=== PATIENT | female | born 1945 | race Caucasian/White ===

== ENCOUNTER 2018-08-30 14:18 | Emergency (ER) | payer MEDICARE ==
[2018-08-30] MEDS ORDERED: SODIUM CHLORIDE 0.9% 500 ML IV STA (14:37)
[2018-08-30 14:39] VITALS: TEMP 97.5
--- NOTE | 2018-08-30 14:41 | ED ---
General Adult HPI - General Stated complaint: lightheaded/dizzy/blurred vision Time Seen by Provider: 08/30/18 14:20 Source: RN notes reviewed - History of Present Illness Initial comments: This is a 72-year-old female presents emergency Department complaining that one week ago she fell over and is not sure if she passed out. Patient states ever since then she has been off balance and feeling as though she might pass out again. Patient states when he moves his head symptoms are worse. Patient states the room feels like it's moving even though she's sure it's not. Patient states she also was nauseated but did not vomit states she has to be helped to the bathroom and off the couch for the first 2 days and ever since then she still off balance. Patient denies any headache patient denies any numbness or focal weakness. Patient denies any chest pain palpitations difficulty breathing or shortness of breath. Patient states when she was younger she did have a brain aneurysm but she states it went away. Patient denies any abdominal pain patient denies nausea vomiting or diarrhea. Patient denies any recent fever chills or cough. Patient denies any slurred speech patient does state however she has some visual disturbance she believes her vision in both eyes is blurry. - Related Data Previous Rx's Medication Instructions Recorded Meclizine [Antivert] 25 mg PO TID #20 tab 08/30/18 Allergies Allergy/AdvReac Type Severity Reaction Status Date / Time No Known Allergies Allergy Verified 08/30/18 15:43 Review of Systems ROS Statement: Those systems with pertinent positive or pertinent negative responses have been documented in the HPI. ROS Other: All systems not noted in ROS Statement are negative. General Exam - General Exam Comments Initial Comments: GENERAL: Patient is well-developed and well-nourished. Patient is nontoxic and well- hydrated and is in mild distress. ENT: Neck is soft and supple. No significant lymphadenopathy is noted. Oropharynx is clear. Moist mucous membranes. Neck has full range of motion without eliciting any pain. EYES: The sclera were anicteric and conjunctiva were pink and moist. Extraocular movements were intact and pupils were equal round and reactive to light. Eyelids were unremarkable. PULMONARY: Unlabored respirations. Good breath sounds bilaterally. No audible rales rhonchi or wheezing was noted. CARDIOVASCULAR: There is a regular rate and rhythm without any murmurs gallops or rubs. ABDOMEN: Soft and nontender with normal bowel sounds. No palpable organomegaly was noted. There is no palpable pulsatile mass. SKIN: Skin is clear with no lesions or rashes and otherwise unremarkable. NEUROLOGIC: Patient is alert and oriented x3. Cranial nerves II through XII are grossly intact. Motor and sensory are also intact. Normal speech, volume and content. Symmetrical smile. MUSCULOSKELETAL: Normal extremities with adequate strength and full range of motion. LYMPHATICS: No significant lymphadenopathy is noted PSYCHIATRIC: Normal psychiatric evaluation. Course Vital Signs 08/30/18 08/30/18 08/30/18 14:29 14:42 16:14 Temperature 97.5 F L Pulse Rate 83 66 Pulse Rate [ 73 Right Sitting Pulse Oximetery ] Pulse Rate [ 92 Right Standing Pulse Oximetery ] Pulse Rate [ 80 Right Supine Pulse Oximetery ] Respiratory 18 16 Rate Blood Pressure 165/78 145/70 Blood Pressure 161/67 [Right Arm Sitting] Blood Pressure 151/67 [Right Arm Standing] Blood Pressure 170/67 [Right Arm Supine] O2 Sat by Pulse 99 100 Oximetry Medical Decision Making - Medical Decision Making EKG shows normal sinus rhythm at 67 bpm [place] interval is 1:30 QRS is 66 QT interval 396 QTC is 418. Patient's EKG shows no ST segment elevation or depression or T wave abnormalities are noted Patient states the movement of the room seems much better at this time and she states her vision has been blurry for about a year and has been getting progressively worse. She has not seen an eye doctor at least 10 years. - Lab Data Result diagrams: 08/30/18 15:12 08/30/18 15:12 Lab Results 08/30/18 08/30/18 08/30/18 Range/Units 15:12 15:12 15:12 WBC 6.4 (3.8-10.6) k/uL RBC 4.98 (3.80-5.40) m/uL Hgb 14.8 (11.4-16.0) gm/dL Hct 44.1 (34.0-46.0) % MCV 88.5 (80.0-100.0) fL MCH 29.7 (25.0-35.0) pg MCHC 33.5 (31.0-37.0) g/dL RDW 12.9 (11.5-15.5) % Plt Count 259 (150-450) k/uL Neutrophils % 57 % Lymphocytes % 32 % Monocytes % 7 % Eosinophils % 1 % Basophils % 1 % Neutrophils # 3.7 (1.3-7.7) k/uL Lymphocytes # 2.0 (1.0-4.8) k/uL Monocytes # 0.4 (0-1.0) k/uL Eosinophils # 0.0 (0-0.7) k/uL Basophils # 0.0 (0-0.2) k/uL PT (9.0-12.0) sec INR (<1.2) APTT (22.0-30.0) sec Sodium 141 (137-145) mmol/L Potassium 4.7 (3.5-5.1) mmol/L Chloride 108 H (98-107) mmol/L Carbon Dioxide 25 (22-30) mmol/L Anion Gap 8 mmol/L BUN 17 (7-17) mg/dL Creatinine 0.64 (0.52-1.04) mg/dL Est GFR (CKD-EPI)AfAm >90 (>60 ml/min/1.73 sqM) Est GFR (CKD-EPI)NonAf >90 (>60 ml/min/1.73 sqM) Glucose 100 H (74-99) mg/dL Calcium 9.8 (8.4-10.2) mg/dL Magnesium 1.9 (1.6-2.3) mg/dL Total Bilirubin 0.5 (0.2-1.3) mg/dL AST 37 H (14-36) U/L ALT 40 (9-52) U/L Alkaline Phosphatase 53 (38-126) U/L Total Creatine Kinase 31 (30-135) U/L CK-MB (CK-2) 0.7 (0.0-2.4) ng/mL CK-MB (CK-2) Rel Index 2.3 Troponin I <0.012 (0.000-0.034) ng/mL Total Protein 7.3 (6.3-8.2) g/dL Albumin 4.2 (3.5-5.0) g/dL 08/30/18 Range/Units 15:12 WBC (3.8-10.6) k/uL RBC (3.80-5.40) m/uL Hgb (11.4-16.0) gm/dL Hct (34.0-46.0) % MCV (80.0-100.0) fL MCH (25.0-35.0) pg MCHC (31.0-37.0) g/dL RDW (11.5-15.5) % Plt Count (150-450) k/uL Neutrophils % % Lymphocytes % % Monocytes % % Eosinophils % % Basophils % % Neutrophils # (1.3-7.7) k/uL Lymphocytes # (1.0-4.8) k/uL Monocytes # (0-1.0) k/uL Eosinophils # (0-0.7) k/uL Basophils # (0-0.2) k/uL PT 9.8 (9.0-12.0) sec INR 1.0 (<1.2) APTT 20.4 L (22.0-30.0) sec Sodium (137-145) mmol/L Potassium (3.5-5.1) mmol/L Chloride (98-107) mmol/L Carbon Dioxide (22-30) mmol/L Anion Gap mmol/L BUN (7-17) mg/dL Creatinine (0.52-1.04) mg/dL Est GFR (CKD-EPI)AfAm (>60 ml/min/1.73 sqM) Est GFR (CKD-EPI)NonAf (>60 ml/min/1.73 sqM) Glucose (74-99) mg/dL Calcium (8.4-10.2) mg/dL Magnesium (1.6-2.3) mg/dL Total Bilirubin (0.2-1.3) mg/dL AST (14-36) U/L ALT (9-52) U/L Alkaline Phosphatase (38-126) U/L Total Creatine Kinase (30-135) U/L CK-MB (CK-2) (0.0-2.4) ng/mL CK-MB (CK-2) Rel Index Troponin I (0.000-0.034) ng/mL Total Protein (6.3-8.2) g/dL Albumin (3.5-5.0) g/dL Disposition Clinical Impression: Vertigo Disposition: HOME SELF-CARE Condition: Good Instructions: Vertigo (ED) Prescriptions: Meclizine [Antivert] 25 mg PO TID #20 tab Is patient prescribed a controlled substance at d/c from ED?: No Referrals: None,Stated [Primary Care Provider] - 1-2 days Time of Disposition: 16:45
[2018-08-30 15:32] LABS: Basophils % (A) 1 %; Eosinophils % (A) 1 %; HCT 44.1 % (34.0-46.0); HGB 14.8 gm/dL (11.4-16.0); Lymphocytes % (A) 32 %; MCH 29.7 pg (25.0-35.0); MCHC 33.5 g/dL (31.0-37.0); MCV 88.5 fL (80.0-100.0); Monocytes # (A) 0.4 k/uL (0-1.0); Monocytes % (A) 7 %; Neutrophils # (A) 3.7 k/uL (1.3-7.7); Neutrophils % (A) 57 %; Platelet Count 259 k/uL (150-450); RBC 4.98 m/uL (3.80-5.40); RDW 12.9 % (11.5-15.5); WBC 6.4 k/uL (3.8-10.6)
[2018-08-30 15:38] LABS: ALT 40 U/L (9-52); AST 37 U/L (14-36); Albumin 4.2 g/dL (3.5-5.0); Alkaline Phosphatase 53 U/L (38-126); Anion Gap 8 mmol/L; Blood Urea Nitrogen 17 mg/dL (7-17); Calcium 9.8 mg/dL (8.4-10.2); Carbon Dioxide 25 mmol/L (22-30); Chloride 108 mmol/L (98-107); Glucose 100 mg/dL (74-99); Magnesium 1.9 mg/dL (1.6-2.3); Potassium 4.7 mmol/L (3.5-5.1); Sodium 141 mmol/L (137-145); Total Bilirubin 0.5 mg/dL (0.2-1.3); Total Protein 7.3 g/dL (6.3-8.2)
--- NOTE | 2018-08-30 15:41 | CT ---
EXAMINATION TYPE: CT brain wo con DATE OF EXAM: 08/30/2018 COMPARISON: None HISTORY: pain CT DLP: 990 mGycm Automated exposure control for dose reduction was used. Helical acquisition through the brain. FINDINGS: There is no hemorrhage or hydrocephalus. Calvarium is intact. Paranasal sinuses and mastoid air cells as visualized are normal. Brain density is normal. IMPRESSION: No acute abnormality.
--- NOTE | 2018-08-30 15:41 | XR ---
EXAMINATION TYPE: XR chest 2V DATE OF EXAM: 08/30/2018 COMPARISON: NONE TECHNIQUE: PA and lateral views submitted. HISTORY: Dizziness FINDINGS: The lungs are clear and there is no pneumothorax, pleural effusion, or focal pneumonia. Postsurgica l change overlying the cervical spine. Hypertrophic and degenerative change of the spine. No overt fa ilure. Biapical pleural thickening. IMPRESSION: 1. No acute process.
[2018-08-30 15:45] LABS: Prothrombin Time 9.8 sec (9.0-12.0)
[2018-08-30 15:47] LABS: Creatine Kinase 31 U/L (30-135)
[2018-08-30 15:50] LABS: Partial Thromboplastin Time 20.4 sec (22.0-30.0)
[2018-08-30 16:01] LABS: Creatine Kinase MB 0.7 ng/mL (0.0-2.4); Troponin I <0.012 ng/mL (0.000-0.034)
[2018-08-30 16:15] VITALS: BP 145/70; PULSE 66; RESP 16
== END 2018-08-30 17:05 | disposition home or self-care (01) ==
LOC: EC 14:18
DX: R42 Dizziness and giddiness (principal); H53.8 Other visual disturbances; R11.0 Nausea
CPT/HCPCS: 36415; 70450; 71046; 80053; 82550; 82553; 83735; 84484; 85025; 85610; 85730; 93005; 96360; 96361; 99284

== ENCOUNTER 2022-06-02 08:56 | Emergency (ER) | payer OTHER ==
[2022-06-02 09:04] VITALS: TEMP 97.4
--- NOTE | 2022-06-02 10:20 | ED ---
Skin/Abscess/FB HPI - General Chief complaint: Skin/Abscess/Foreign Body Stated complaint: infection Time Seen by Provider: 06/02/22 10:00 Source: patient, family, RN notes reviewed, old records reviewed Mode of arrival: ambulatory Limitations: no limitations - History of Present Illness Initial comments: Well-appearing 76-year-old female presents ambulatory with complaints of a puncture wound to her right lower abdomen that she has had for over 4 months. Patient states 4 months ago she leaned over the couch and something poked into her abdomen. She developed an abscess and went to urgent care and was prescribed antibiotics. She states that the wound has not completely healed. She's been to the urgent care multiple times and was recently prescribed Keflex. MD complaint: other -: month(s) (4) Severity scale (1-10): 0 Associated symptoms: denies other symptoms Treatments Prior to Arrival: bandages, antibiotic - Related Data Home Medications Medication Instructions Recorded Confirmed Cephalexin [Keflex] 500 mg PO TID 06/02/22 06/02/22 Allergies Allergy/AdvReac Type Severity Reaction Status Date / Time No Known Allergies Allergy Verified 06/02/22 10:07 Review of Systems ROS Statement: Those systems with pertinent positive or pertinent negative responses have been documented in the HPI. ROS Other: All systems not noted in ROS Statement are negative. Past Medical History Additional Past Medical History / Comment(s): Aneurysm History of Any Multi-Drug Resistant Organisms: None Reported Past Surgical History: No Surgical Hx Reported Past Psychological History: Depression Smoking Status: Current every day smoker Past Alcohol Use History: None Reported Past Drug Use History: None Reported General Exam Limitations: no limitations General appearance: alert, in no apparent distress Head exam: Present: atraumatic Eye exam: Present: normal appearance. Absent: scleral icterus, conjunctival injection ENT exam: Present: mucous membranes moist Respiratory exam: Present: normal lung sounds bilaterally. Absent: respiratory distress, accessory muscle use Cardiovascular Exam: Present: regular rate GI/Abdominal exam: Present: soft, other (Approximately 4 mm open wound with no surrounding erythema or drainage). Absent: distended, tenderness, rigid Extremities exam: Present: normal capillary refill. Absent: pedal edema Neurological exam: Present: alert, oriented X3, normal gait Psychiatric exam: Present: normal affect, normal mood Skin exam: Present: warm, dry, normal color. Absent: cyanosis, erythema, pallor Course Vital Signs 06/02/22 06/02/22 08:58 10:26 Temperature 97.4 F L Pulse Rate 70 67 Respiratory 18 16 Rate Blood Pressure 159/75 138/64 O2 Sat by Pulse 96 97 Oximetry Medical Decision Making - Medical Decision Making Patient presents with a nonhealing right abdominal puncture wound approximately 3-4 mm for 4 months. No surrounding erythema, drainage or fluctuance. Patient denies any fevers, no nausea vomiting or diarrhea. She was recently prescribed Keflex and is continuing to take it. The wound is granulating well and patient was directed to keep the wound covered with Neosporin and bandage. Follow-up with her primary care doctor. I did explain to her in detail that if drainage, fevers or redness occur to be reevaluated. Disposition Clinical Impression: Wound check, abscess Disposition: HOME SELF-CARE Condition: Good Instructions (If sedation given, give patient instructions): Chronic Wound Care (ED) Additional Instructions: Placed a layer of bacitracin and a Band-Aid over the wound daily. Return to the emergency room with any new or concerning symptoms including increased drainage, redness and swelling or fevers. Finish antibiotics as prescribed. Follow-up with the primary care doctor next week. Is patient prescribed a controlled substance at d/c from ED?: No Referrals: None,Stated [Primary Care Provider] - 1-2 days Time of Disposition: 10:19
[2022-06-02 10:27] VITALS: BP 138/64; PULSE 67; RESP 16
== END 2022-06-02 10:30 | disposition home or self-care (01) ==
LOC: EC 08:56
DX: L02.91 Cutaneous abscess, unspecified (principal); Z48.00 Encounter for change or removal of nonsurgical wound dressing; F32.A Depression, unspecified; F17.200 Nicotine dependence, unspecified, uncomplicated
CPT/HCPCS: 87070; 87205; 99282